=== PATIENT | female | born 1995 | race Caucasian/White ===

== ENCOUNTER → 2016-06-26 | Outpatient (REF) ==
[~2016-06-26] MED LIST: BIRTH CONTROL PILLS; CEFTIN500 MG PO; LEXAPRO20 MG PO; NORCO 325 MG-51 TAB PO; PHENERGAN 25 TA25 MG PO; PHENERGAN25 MG RC; REGLAN 5MG T5 MG/TAB PO; ULTRAM 50MG TAB50 MG PO; XANAX 0.5MG0.5 MG PO; ZOFRAN ODT4 MG PO; ZOFRAN8 MG PO
== END ==
LOC: WSOH 14:37
DX: Z02.89 Encounter for other administrative examinations (principal)

== ENCOUNTER 2016-11-04 05:51 | Emergency (ER) | payer OTHER ==
[~2016-11-04] VITALS: Ht 157.5 cm; Wt 54.5 kg
[~2016-11-04 05:51] MED LIST changes: -CEFTIN500 MG PO; -ULTRAM 50MG TAB50 MG PO; -ZOFRAN ODT4 MG PO; -ZOFRAN8 MG PO
[2016-11-04] MEDS ORDERED: PHENERGAN25 MG RC (06:09)
[2016-11-04] MEDS ORDERED: PHENERGAN 25 TA25 MG PO (06:09)
[2016-11-04 07:13] LABS: PH 8 (5-8); SQUAMOUS EPITHELIAL 0-2 /hpf; URINE APPEARANCE Clear; URINE BACTERIA None Seen /hpf; URINE BILIRUBIN Negative (NEGATIVE); URINE BLOOD 2+ (NEGATIVE); URINE COLOR Yellow; URINE GLUCOSE 1+ (NEGATIVE); URINE KETONE 1+ (NEGATIVE); URINE UROBILINOGEN Negative (NEGATIVE)
[2016-11-04] MEDS ORDERED: CEFTIN500 MG PO (07:21)
[2016-11-04 08:39] VITALS: BP 141/97; PULSE 95
== END 2016-11-04 09:30 | disposition home or self-care (01) ==
LOC: COL.ER 05:51
PROVIDERS: Emergency Medicine
DX: G43.A0 Cyclical vomiting, in migraine, not intractable (principal); N39.0 Urinary tract infection, site not specified
CPT/HCPCS: J0696; J1200; J1630; J2405; J7030

== ENCOUNTER 2016-12-10 10:47 | Emergency (ER) | payer OTHER ==
[~2016-12-10] VITALS: Ht 157.5 cm; Wt 50.0 kg
[~2016-12-10 10:47] MED LIST changes: +CEFTIN500 MG PO
[2016-12-10 10:49] VITALS: BP 127/89; TEMP 98.3
[2016-12-10] MEDS ORDERED: ZOFRAN8 MG PO (11:08)
[2016-12-10] MEDS ORDERED: PHENERGAN25 MG RC (11:08)
[2016-12-10] MEDS ORDERED: ULTRAM 50MG TAB50 MG PO (11:08)
[2016-12-10 11:23] LABS: BASO # 0.1 (0.0-0.2); BASO % 0.5 % (0.0-2.0); EOS % 0.2 % (0-4.0); GRAN # 7.6 (1.4-6.5); GRAN % 61.5 % (42.2-75.2); HEMATOCRIT 42.4 % (37.0-47.0); HEMOGLOBIN 14.2 g/dl (12.5-16.0); LYMPH # 3.6 (1.2-3.4); LYMPH % 28.9 % (20.0-51.0); MEAN CELL VOLUME 86 fl (80.0-100.0); MEAN CORPUSCULAR HEMOGLOBIN 29 pg (27.0-31.0); MEAN CORPUSCULAR HGB CONC 34 g/dl (33.0-37.0); MEAN PLATELET VOLUME 11.5 fl (7.4-10.4); MONO # 1.1 (0.1-0.6); MONO % 8.6 % (1.7-9.3); PLATELET COUNT 330 K/mm3 (130-400); RED BLOOD COUNT 4.93 M/mm3 (4.10-5.30); REDCELL DISTRIBUTION WIDTH-CV 14.1 % (11.5-14.5); WHITE BLOOD COUNT 12.4 K/mm3 (4.8-10.8)
[2016-12-10 11:30] LABS: ADJUSTED CALCIUM 9.2 mg/dL (8.4-10.2); ALBUMIN 4.8 gm/dL (3.5-5.0); BILIRUBIN,TOTAL 1.1 mg/dL (0.0-1.0); CALCIUM 9.8 mg/dL (8.4-10.2); CREATININE, serum 0.74 mg/dL (0.52-1.25); POTASSIUM 3.7 mmol/L (3.4-5.0); TOTAL PROTEIN 8.3 gm/dL (6.4-8.2)
[2016-12-10 13:40] VITALS: PULSE 62
== END 2016-12-10 13:44 | disposition home or self-care (01) ==
LOC: COL.ER 10:47
PROVIDERS: Emergency Medicine
DX: R10.13 Epigastric pain (principal); R11.2 Nausea with vomiting, unspecified; R63.0 Anorexia; G43.A0 Cyclical vomiting, in migraine, not intractable
CPT/HCPCS: J1170; J1885; J2405; J2765; J7030

== ENCOUNTER 2016-12-11 09:23 | Emergency (ER) | payer OTHER ==
[~2016-12-11] VITALS: Ht 157.5 cm; Wt 47.7 kg
[~2016-12-11 09:23] MED LIST changes: +ULTRAM 50MG TAB50 MG PO; +ZOFRAN8 MG PO
[2016-12-11 09:32] VITALS: BP 156/101; TEMP 98.1
[2016-12-11 12:22] VITALS: PULSE 77
[2016-12-12] MEDS ORDERED: ZOFRAN ODT4 MG PO (18:52)
[2016-12-12] MEDS ORDERED: PHENERGAN 25 TA25 MG PO (18:52)
== END 2016-12-11 12:21 | disposition home or self-care (01) ==
LOC: COL.ER 09:23
DX: G43.A0 Cyclical vomiting, in migraine, not intractable (principal)
CPT/HCPCS: J1170; J1200; J1630; J7030

== ENCOUNTER 2016-12-12 15:52 | Emergency (ER) | payer OTHER ==
[~2016-12-12] VITALS: Ht 157.5 cm; Wt 50.0 kg
[2016-12-12 15:55] VITALS: BP 163/95; TEMP 98.1
[2016-12-12 16:47] LABS: BASO # 0.1 (0.0-0.2); BASO % 0.7 % (0.0-2.0); EOS % 0.3 % (0-4.0); GRAN # 6.9 (1.4-6.5); GRAN % 64.1 % (42.2-75.2); HEMATOCRIT 37.5 % (37.0-47.0); HEMOGLOBIN 12.7 g/dl (12.5-16.0); LYMPH % 27.6 % (20.0-51.0); MEAN CELL VOLUME 84 fl (80.0-100.0); MEAN CORPUSCULAR HEMOGLOBIN 28 pg (27.0-31.0); MEAN CORPUSCULAR HGB CONC 34 g/dl (33.0-37.0); MEAN PLATELET VOLUME 11.4 fl (7.4-10.4); MONO # 0.8 (0.1-0.6); PLATELET COUNT 282 K/mm3 (130-400); RED BLOOD COUNT 4.48 M/mm3 (4.10-5.30); REDCELL DISTRIBUTION WIDTH-CV 13.2 % (11.5-14.5); WHITE BLOOD COUNT 10.7 K/mm3 (4.8-10.8)
[2016-12-12 17:07] LABS: ADJUSTED CALCIUM 8.9 mg/dL (8.4-10.2); ALANINE AMINOTRANSFERASE 51 U/L (9-52); ALBUMIN 4.3 gm/dL (3.5-5.0); ALKALINE PHOSPHATASE 75 U/L (50-136); ANION GAP 12 mmol/L (7-16); BLOOD UREA NITROGEN 7 mg/dL (7-17); CALCIUM 9.1 mg/dL (8.4-10.2); CARBON DIOXIDE 23 mmol/L (22-30); CHLORIDE 102 mmol/L (98-107); CREATININE, serum 0.66 mg/dL (0.52-1.25); GLUCOSE 89 mg/dL (74-106); LIPASE 78 U/L (23-300); POTASSIUM 3.1 mmol/L (3.4-5.0); SODIUM 136 mmol/L (137-145); TOTAL PROTEIN 7.3 gm/dL (6.4-8.2)
[2016-12-12 17:12] LABS: C-REACTIVE PROTEIN < 0.5 mg/dL (0.0-0.9)
[2016-12-12 17:58] LABS: PH 8 (5-8); SQUAMOUS EPITHELIAL 0-2 /hpf; URINE APPEARANCE Cloudy; URINE BACTERIA Rare /hpf; URINE BILIRUBIN Negative (NEGATIVE); URINE BLOOD 2+ (NEGATIVE); URINE COLOR Yellow; URINE GLUCOSE Negative (NEGATIVE); URINE KETONE 1+ (NEGATIVE); URINE RBC 0-2 /hpf; URINE WBC 0-2 /hpf
[2016-12-12] MEDS ORDERED: ZOFRAN ODT4 MG PO (18:52)
[2016-12-12] MEDS ORDERED: PHENERGAN 25 TA25 MG PO (18:52)
[2016-12-12 19:18] VITALS: PULSE 72
== END 2016-12-12 19:21 | disposition home or self-care (01) ==
LOC: COL.ER 15:52
PROVIDERS: Emergency Medicine
DX: G43.A0 Cyclical vomiting, in migraine, not intractable (principal); Z90.49 Acquired absence of other specified parts of digestive tract
CPT/HCPCS: J1200; J1630; J2405; J2550; J7030

== ENCOUNTER 2017-03-14 02:03 | Emergency (ER) | payer OTHER ==
[~2017-03-14] VITALS: Ht 157.5 cm; Wt 50.0 kg
[~2017-03-14 02:03] MED LIST changes: +ZOFRAN ODT4 MG PO
[2017-03-14 02:05] VITALS: BP 144/91; TEMP 98.1
[2017-03-14 02:49] LABS: BASO # 0.1 (0.0-0.2); BASO % 0.4 % (0.0-2.0); EOS % 0.2 % (0-4.0); GRAN # 10.5 (1.4-6.5); GRAN % 78.2 % (42.2-75.2); HEMATOCRIT 41.2 % (37.0-47.0); HEMOGLOBIN 14.6 g/dl (12.5-16.0); LYMPH # 2.1 (1.2-3.4); LYMPH % 15.7 % (20.0-51.0); MEAN CELL VOLUME 85 fl (80.0-100.0); MEAN CORPUSCULAR HEMOGLOBIN 30 pg (27.0-31.0); MEAN CORPUSCULAR HGB CONC 35 g/dl (33.0-37.0); MEAN PLATELET VOLUME 11.3 fl (7.4-10.4); MONO # 0.7 (0.1-0.6); MONO % 5.2 % (1.7-9.3); PLATELET COUNT 340 K/mm3 (130-400); RED BLOOD COUNT 4.87 M/mm3 (4.10-5.30); WHITE BLOOD COUNT 13.5 K/mm3 (4.8-10.8)
[2017-03-14] MEDS ORDERED: ZOFRAN ODT4 MG PO (02:56)
[2017-03-14 02:57] LABS: ADJUSTED CALCIUM 8.9 mg/dL (8.4-10.2); ALBUMIN 4.5 gm/dL (3.5-5.0); BILIRUBIN,TOTAL 0.8 mg/dL (0.0-1.0); CALCIUM 9.3 mg/dL (8.4-10.2); CREATININE, serum 0.72 mg/dL (0.52-1.25); POTASSIUM 3.1 mmol/L (3.4-5.0); TOTAL PROTEIN 7.9 gm/dL (6.4-8.2)
[2017-03-14] MEDS ORDERED: PHENERGAN 25 TA25 MG PO (02:57)
[2017-03-14 04:04] VITALS: PULSE 75
== END 2017-03-14 04:15 | disposition home or self-care (01) ==
LOC: COL.ER 02:03
PROVIDERS: Nurse Practitioner
DX: R11.2 Nausea with vomiting, unspecified (principal); F12.10 Cannabis abuse, uncomplicated; Z90.49 Acquired absence of other specified parts of digestive tract
CPT/HCPCS: J2060; J2405; J2550; J3010; J7030